=== PATIENT | female | born 1985 | race Caucasian/White ===

== ENCOUNTER 2020-07-07 11:39 | Emergency (ER) | payer MEDICAID ==
[2020-07-07] MEDS ORDERED: Ondansetron 4 MG/2 ML SDV IVPUSH ONE (12:28)
[2020-07-07] MEDS ORDERED: Morphine 4 MG/ML Syringe IVPUSH ONE (12:28)
[2020-07-07] MEDS ORDERED: Lactated Ringers 1,000 ML IV SCH (12:30)
[2020-07-07 12:46] LABS: BLOOD UREA NITROGEN,BUN 19 mg/dL (7.0-18.0); CARBON DIOXIDE,CO2 23.2 mmol/L (21.0-32.0); CHLORIDE,CL 103 mmol/L (98-107); GLUCOSE RANDOM 111 mg/dL (74-106); POTASSIUM,K 4.4 mmol/L (3.5-5.1); SODIUM,NA 136 mmol/L (136-145)
--- NOTE | 2020-07-07 15:44 | CT ---
INDICATION: Abdominal pain. History of IV drug use. COMPARISON: None available TECHNIQUE: CT examination of the abdomen and pelvis was performed with the uneventful intravenous administration of 100 cc of Isovue 370 while 2.5 mm thick axial sections were obtained from the lung bases through the pubic symphysis. Oral contrast was not administered. Please note that all CT scans at this facility use dose modulation, iterative reconstruction, and/or weight-based dosing when appropriate to reduce radiation dose to as low as reasonably achievable. FINDINGS: In the abdomen, the liver, spleen, pancreas, and adrenals are normal in appearance. The kidneys are normal in appearance. The gallbladder is normal in appearance. The abdominal aorta is normal in caliber with no sign of dilatation. There is no sign of retroperitoneal mass or adenopathy. The stomach, loops of small bowel, and colon in the abdomen are normal in appearance. There is a small right superior periumbilical fat containing hernia. In the pelvis, the appendix is nonvisualized, but there is no sign of an inflammatory process in the area of the appendix. The loops of small bowel and colon in the pelvis are normal in appearance. The uterus and adnexal regions are normal in appearance. The urinary bladder is normal in appearance. There is no sign of pelvic or inguinal mass or adenopathy. There is no sign of free air or free fluid in the abdomen or pelvis. The lung bases are clear. There is grade 1 anterior subluxation of L4 on L5 related to bilateral severe facet arthropathy. There is bilateral L4-5 disc degenerative disease. The rest of the osseous structures are normal in appearance for the patient`s age. IMPRESSION: Nothing seen to explain the patient`s abdominal pain. No sign of any deep-seated infection in the abdomen or pelvis. No sign of any abnormality of the bowel. Normal CT of the abdomen with contrast. Normal CT of the pelvis with contrast. Grade 1 anterior subluxation of L4 on L5 with severe L4-5 disc degenerative disease and severe bilateral facet arthropathy. Please note that all CT scans at this facility use dose modulation, iterative reconstruction, and/or weight-based dosing when appropriate to reduce radiation dose to as low as reasonably achievable. Dictated by Allan Egan MD @ 07/07/2020 3:42:[address] Allan Egan @ Jul 07 2020 3:42PM
--- NOTE | 2020-07-07 17:01 | EDM.PDOC ---
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 The patient states that her stomach hurts really bad. She states that she drank Sprite and it immediately worsened it. She states that she is also experiencing some diarrhea which is watery. She describes the pain as an acid feeling and rates it 6 out of 10 throughout her abdomen. She describes it also is cramping. She states that it has improved. She states that she has had multiple episodes of vomiting which was nonbloody and nonbilious. She denies any radiation of this pain. She denies any relieving factors. She denies any sick contacts, recent antibiotics. She denies any current IV drug use in the last 6 days. She states that she is from [place] and she came up here and is out of her Suboxone. She denies any dysuria, hematuria, vaginal bleeding or vaginal discharge. She denies any back pain, fever or chills. She denies any sick contacts. REVIEW OF SYSTEMS: Constitutional: Denies fever, chills. Eyes: Denies eye pain Ears, Nose, Mouth, & Throat: Denies earache Cardiovascular: Denies chest pain Respiratory: Denies shortness of breath Gastrointestinal: Positive for abdominal pain, nausea, vomiting, diarrhea. Denies hematochezia, hematemesis, bilious emesis, melena. Genitourinary: Denies hematuria, vaginal bleeding, vaginal discharge Skin:Denies a rash MSK: Denies joint pain Neurological: Denies blurred vision Psychiatric: Denies depression PAST MEDICAL HISTORY: As per history of present illness and as reviewed below otherwise noncontributory. SURGICAL HISTORY: As per history of present illness and as reviewed below otherwise noncontributory. LMP: Hysterectomy SOCIAL HISTORY: As per history of present illness and as reviewed below otherwise noncontributory. FAMILY HISTORY: As per history of present illness and as reviewed below othe rwise noncontributory. EXAMINATION OF ORGAN SYSTEMS/BODY AREAS: Constitutional: Blood pressure is 123/91, heart rate 74, respiratory rate 15 with an oxygen saturation 98% on room air. Temperature 36.4 General: Obese woman who appears to be in a mild amount of pain. The patient is continuously yawning. Psychiatric: Appropriate mood and affect. Eyes: No scleral icterus or conjunctival erythema pupils were 4 mm and reactive bilaterally. Extraocular movements intact. ENMT: Moist mucous membranes. No pharyngeal erythema Cardiovascular: Regular, rate, and rhythm. No gallops, murmurs, or rubs. Bilateral upper extremity pulses symmetric and intact. No peripheral edema. No JVD. Respiratory: Lungs clear to auscultation bilaterally. No wheezes, rales, or rhonchi. Gastrointestinal: Soft, diffusely tender to palpation, mild distention. No rebound or guarding. Hyperactive bowel sounds. Genitourinary: No suprapubic tenderness Musculoskeletal: Normal range of motion. Skin: No lesions or abrasions. There is piloerection. Neurological: Alert, GCS 15 MEDICAL DECISION MAKING AND COURSE IN THE ED WITH INTERPRETATION/REVIEW OF DIAGNOSTIC STUDIES: This is a 34-year-old and with a past medical history of chronic opiate IV drug use who is on Suboxone who comes to the emergency department with acute abdominal pain associated with nausea and vomiting. At this time given the yawning and piloerection this could be withdrawal from Suboxone are opiates. However given the pain on examination will undergo a work-up to evaluate for any intra-abdominal process. Will obtain CBC, CMP, u rinalysis, and Covid. Will obtain a CT abdomen pelvis with IV contrast. We will provide the patient 1 L of lactated Ringer's bolus, 4 mg of IV morphine for pain relief, and 4 mg of Zofran. Laboratory: CBC is unremarkable. CMP reveals mildly elevated BUN at 19, hyperglycemia at 111, mild transaminitis with an AST of 51, ALT of 93 otherwise unremarkable. Covid is negative. Urinalysis was a clean catch and was negative for leukocyte esterase, negative for nitrites, and negative for blood. Interpretation: Negative. . The radiological images were viewed by myself along with reading the report from the radiologist. CT abdomen pelvis with IV contrast does not reveal any acute intra-abdominal process. There is some grade 1 anterior subluxation of L4 and L5 with degenerative disc disease. On reevaluation the patient continues to remain stable. I did discuss with her that her work-up is negative. I discussed that she should follow-up with her primary care physician and to return to the emergency department if she has any new or worsening symptoms. She asked if I could prescribe Suboxone and I told her we are not able to do that however I did find her a Suboxone clinic. She was amenable discharge at this time and had no further questions. DISPOSITION: The patient was discharged home in stable condition. The patient will follow up with primary care physician in 1 to 3 days CONDITION: Fair PROCEDURES: None FINAL IMPRESSION(S)/DIAGNOSES: 1. Acute abdominal pain 2. Acute vomiting Oj Franco M.D. Abdominal Pain Score (Numeric/FACES): 8 - Related Data Allergies Allergy/AdvReac Type Severity Reaction Status Date / Time acetaminophen [From Vicodin] Allergy Cannot Verified 07/07/20 11:53 Remember Fish Containing Products Allergy Cannot Verified 07/07/20 11:53 Remember hydrocodone [From Vicodin] Allergy Cannot Verified 07/07/20 11:53 Remember Penicillins Allergy Cannot Verified 07/07/20 11:53 Remember Home Meds: Home Meds Buprenorphine HCl/Naloxone HCl [Suboxone 4 mg-1 mg Sl Film] 1 film PO DAILY 07/07/20 [History] Past Medical History - Past Health History Medical/Surgical History: Denies Medical/Surgical History - Infectious Disease History Infectious Disease History: Reports: None Social & Family History - Family History Family Medical History: No Pertinent Family History - Tobacco Use Tobacco Use Status *Q: Never Tobacco User - Recreational Drug Use Recreational Drug Use: Yes Recreational Drug Type: Reports: Heroin ED ROS GENERAL - Review of Systems Review Of Systems: See Below ED EXAM, GENERAL - Physical Exam Exam: See Below Course - Vital Signs Last Recorded V/S: Last Vital Signs Temp 36.4 C 07/07/20 11:54 Pulse 63 07/07/20 17:12 Resp 18 07/07/20 17:12 BP 115/54 L 07/07/20 17:12 Pulse Ox 98 07/07/20 17:12 - Orders/Labs/Meds Labs: Laboratory Tests 07/07/20 07/07/20 07/07/20 Range/Units 12:15 12:15 14:57 WBC 11.00 (4.0-11.0) K/uL RBC 4.89 (4.30-5.90) M/uL Hgb 15.0 (12.0-16.0) g/dL Hct 43.4 (36.0-46.0) % MCV 88.8 (80.0-98.0) fL MCH 30.7 (27.0-32.0) pg MCHC 34.6 (31.0-37.0) g/dL RDW Std Deviation 44.5 (28.0-62.0) fl RDW Coeff of Joshua 14 (11.0-15.0) % Plt Count 258 (150-400) K/uL MPV 10.90 (7.40-12.00) fL Neut % (Auto) 87.2 H (48.0-80.0) % Lymph % (Auto) 8.4 L (16.0-40.0) % Dickson % (Auto) 3.7 (0.0-15.0) % Eos % (Auto) 0.6 (0.0-7.0) % Baso % (Auto) 0.1 (0.0-1.5) % Neut # (Auto) 9.6 H (1.4-5.7) K/uL Lymph # (Auto) 0.9 (0.6-2.4) K/uL Dickson # (Auto) 0.4 (0.0-0.8) K/uL Eos # (Auto) 0.1 (0.0-0.7) K/uL Baso # (Auto) 0.0 (0.0-0.1) K/uL Nucleated RBC % 0.0 /100WBC Nucleated RBCs # 0 K/uL Sodium 136 (136-145) mmol/L Potassium 4.4 (3.5-5.1) mmol/L Chloride 103 (98-107) mmol/L Carbon Dioxide 23.2 (21.0-32.0) mmol/L BUN 19 H (7.0-18.0) mg/dL Creatinine 1.0 (0.6-1.0) mg/dL Est Cr Clr Drug Dosing 70.66 mL/min Estimated GFR (MDRD) > 60.0 ml/min Glucose 111 H (74-106) mg/dL Calcium 8.6 (8.5-10.1) mg/dL Total Bilirubin 0.6 (0.2-1.0) mg/dL AST 51 H (15-37) IU/L ALT 93 H (14-63) IU/L Alkaline Phosphatase 110 (46-116) U/L Total Protein 8.2 (6.4-8.2) g/dL Albumin 3.5 (3.4-5.0) g/dL Globulin 4.7 H (2.6-4.0) g/dL Albumin/Globulin Ratio 0.7 L (0.9-1.6) Urine Color Urine Appearance Urine pH (5.0-8.0) Ur Specific Marble (1.001-1.035) Urine Protein (NEGATIVE) mg/dL Urine Glucose (UA) (NEGATIVE) mg/dL Urine Ketones (NEGATIVE) mg/dL Urine Occult Blood (NEGATIVE) Urine Nitrite (NEGATIVE) Urine Bilirubin (NEGATIVE) Urine Urobilinogen (<2.0) EU/dL Ur Leukocyte Esterase (NEGATIVE) SARS-CoV-2 RNA (SOHEILA) NEGATIVE (NEGATIVE) 07/07/20 Range/Units 15:28 WBC (4.0-11.0) K/uL RBC (4.30-5.90) M/uL Hgb (12.0-16.0) g/dL Hct (36.0-46.0) % MCV (80.0-98.0) fL MCH (27.0-32.0) pg MCHC (31.0-37.0) g/dL RDW Std Deviation (28.0-62.0) fl RDW Coeff of Joshua (11.0-15.0) % Plt Count (150-400) K/uL MPV (7.40-12.00) fL Neut % (Auto) (48.0-80.0) % Lymph % (Auto) (16.0-40.0) % Dickson % (Auto) (0.0-15.0) % Eos % (Auto) (0.0-7.0) % Baso % (Auto) (0.0-1.5) % Neut # (Auto) (1.4-5.7) K/uL Lymph # (Auto) (0.6-2.4) K/uL Dickson # (Auto) (0.0-0.8) K/uL Eos # (Auto) (0.0-0.7) K/uL Baso # (Auto) (0.0-0.1) K/uL Nucleated RBC % /100WBC Nucleated RBCs # K/uL Sodium (136-145) mmol/L Potassium (3.5-5.1) mmol/L Chloride (98-107) mmol/L Carbon Dioxide (21.0-32.0) mmol/L BUN (7.0-18.0) mg/dL Creatinine (0.6-1.0) mg/dL Est Cr Clr Drug Dosing mL/min Estimated GFR (MDRD) ml/min Glucose (74-106) mg/dL Calcium (8.5-10.1) mg/dL Total Bilirubin (0.2-1.0) mg/dL AST (15-37) IU/L ALT (14-63) IU/L Alkaline Phosphatase (46-116) U/L Total Protein (6.4-8.2) g/dL Albumin (3.4-5.0) g/dL Globulin (2.6-4.0) g/dL Albumin/Globulin Ratio (0.9-1.6) Urine Color YELLOW Urine Appearance CLEAR Urine pH 6.0 (5.0-8.0) Ur Specific Marble 1.020 (1.001-1.035) Urine Protein NEGATIVE (NEGATIVE) mg/dL Urine Glucose (UA) NEGATIVE (NEGATIVE) mg/dL Urine Ketones NEGATIVE (NEGATIVE) mg/dL Urine Occult Blood NEGATIVE (NEGATIVE) Urine Nitrite NEGATIVE (NEGATIVE) Urine Bilirubin NEGATIVE (NEGATIVE) Urine Urobilinogen 0.2 (<2.0) EU/dL Ur Leukocyte Esterase NEGATIVE (NEGATIVE) SARS-CoV-2 RNA (SOHEILA) (NEGATIVE) Meds: Medications Discontinued Medications Generic Name Dose Route Start Last Admin Trade Name Freq PRN Reason Stop Dose Admin Lactated Ringer's 1,000 mls @ 999 mls/hr 07/07/20 12:30 07/07/20 12:43 Ringers, Lactated IV 999 mls/hr ASDIRECTED MAICOL Administration Iopamidol 100 ml 07/07/20 19:12 07/07/20 19:13 Iopamidol 755 Mg/Ml 500 Ml Multipack Bottle IVPUSH 07/07/20 19:13 100 ml ONETIME STA Administration Morphine Sulfate 4 mg 07/07/20 12:28 07/07/20 12:43 Morphine 4 Mg/Ml Syringe IVPUSH 07/07/20 12:29 4 mg ONETIME ONE Administration Ondansetron HCl 4 mg 07/07/20 12:28 07/07/20 12:43 Ondansetron 4 Mg/2 Ml Sdv IVPUSH 07/07/20 12:29 4 mg ONETIME ONE Administration Departure - Departure Time of Disposition: 17:01 Disposition: Home, Self-Care 01 Condition: Fair Clinical Impression: Abdominal pain, Vomiting - Discharge Information Instructions: Abdominal Pain, Adult, [id number], Nausea and Vomiting, Adult Referrals: PCP,None [Primary Care Provider] - Forms: ED Department Discharge Additional Instructions: You evaluate today on an emergent basis. At this time your work-up is negative. We were able to find you a Suboxone clinic. I recommend that your last sawyer contact them to get further Suboxone as we are not certified to prescribe. I do recommend that you follow-up with your primary care physician. Please return to the emergency department if you have any new or worsening symptoms or inability to tolerate fluids or food. [facility] - Primary Care [address] [place] [address] [place] [address] The patient is informed of any results of their evaluation and diagnostic workup and all questions are answered. They are given discharge instructions and return precautions. The patient is stable for discharge. The patient states they understand and agree with the plan and that they will return if their symptoms get worse or if they have any new concerns. The following information is given to patients seen in the emergency department who are being discharged to home. This information is to outline your options for follow-up care. We provide all patients seen in our emergency department with a follow-up referral. The need for follow-up, as well as the timing and circumstances, are variable depending upon the specifics of your emergency department visit. If you don't have a primary care physician on staff, we will provide you with a referral. We always advise you to contact your personal physician following an emergency department visit to inform them of the circumstance of the visit and for follow-up with them and/or the need for any referrals to a consulting specialist. The emergency department will also refer you to a specialist when appropriate. This referral assures that you have the opportunity for follow-up care with a specialist. All of these measure are taken in an effort to provide you with optimal care, which includes your follow-up. Under all circumstances we always encourage you to contact your private physician who remains a resource for coordinating your care. When calling for f ollow-up care, please make the office aware that this follow-up is from your recent emergency room visit. If for any reason you are refused follow-up, please contact the [facility] Emergency Department at and asked to speak to the emergency department charge nurse. Sepsis Event Note (ED) - Evaluation Sepsis Screening Result: No Definite Risk
[2020-07-07] MEDS ORDERED: Iopamidol 755 MG/ML 500 ML Multipack Bottle IVPUSH STA (19:12)
== END 2020-07-07 17:13 | disposition home or self-care (01) ==
LOC: MW.ED 11:39
DX: R10.84 Generalized abdominal pain (principal); R11.2 Nausea with vomiting, unspecified; R19.7 Diarrhea, unspecified; Z91.013 Allergy to seafood; Z88.5 Allergy status to narcotic agent; Z88.0 Allergy status to penicillin; Z20.822 Contact with and (suspected) exposure to COVID-19
CPT/HCPCS: 36415; 74177; 80053; 81003; 85025; 87635; 96374; 96375; 99284; J2270; J2405; J7120; Q9967; U0002